=== PATIENT | male | born 1965 | race Caucasian/White ===

== ENCOUNTER → 2018-03-29 | Outpatient (CLI) | payer MEDICAID | LOC: CIMAGING 12:00 → EDSTATUS 12:16 | PROVIDERS: ATTEND Family Medicine | DX: M79.671 Pain in right foot (principal); M24.08 Loose body, other site; S93.401A Sprain of unspecified ligament of right ankle, initial encounter | CPT/HCPCS: 73630-PO ==

== ENCOUNTER → 2018-10-21 | Outpatient (CLI) | payer MEDICAID | LOC: CIMAGING 10:53 | PROVIDERS: ATTEND Family Medicine | DX: M50.11 Cervical disc disorder with radiculopathy, high cervical region (principal); M50.123 Cervical disc disorder at C6-C7 level with radiculopathy; M50.31 Other cervical disc degeneration, high cervical region; M50.323 Other cervical disc degeneration at C6-C7 level; M43.12 Spondylolisthesis, cervical region | CPT/HCPCS: 72040-PO ==